=== PATIENT | male | born 2000 | race Two or more races ===

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

== ENCOUNTER 2019-02-05 22:46 | Emergency (ER) | payer SELFPAY ==
[~2019-02-05] VITALS: Ht 170.2 cm; Wt 90.9 kg
[2019-02-05 22:57] VITALS: Ht 170.2 cm; Wt 90.9 kg
[2019-02-05] MEDS ORDERED: HYDROCODON-ACE1 EAC7 (22:58)
[2019-02-05 23:46] VITALS: BP 144/88
== END 2019-02-05 23:48 | disposition home or self-care (01) ==
LOC: D.ER 22:46
DX: T18.0XXA Foreign body in mouth, initial encounter (principal); X58.XXXA Exposure to other specified factors, initial encounter; Y93.89 Activity, other specified; Y92.89 Other specified places as the place of occurrence of the external cause

== ENCOUNTER 2019-12-30 07:14 | Emergency (ER) | payer SELFPAY ==
[~2019-12-30] VITALS: Ht 170.2 cm; Wt 101.4 kg
[~2019-12-30 07:14] MED LIST: HYDROCODON-ACE1 EAC7
[2019-12-30 07:20] VITALS: Ht 170.2 cm; Wt 101.4 kg
[2019-12-30 07:44] LABS: BASOPHILS 0.3 % (0-2); HEMOGLOBIN 15.6 g/dL (13.5-17.5); IMMATURE GRANULOCYTES 1.2 % (0-5); LYMPHOCYTES 34.6 % (15-50); MCH 30.7 pg (26.0-34.0); MCHC 33.9 g/dL (31.0-37.0); MCV 90.6 fL (80.0-100.0); MEAN PLATELET VOLUME 10.5 fL (7.4-10.4); MONOCYTES 12.9 % (2-11); PLATELET COUNT 232 10x3/uL (130-400); RBC 5.08 10x6/uL (4.20-6.10); RDW 12.2 % (11.5-14.5); WBC 5.7 10x3/uL (4.8-10.8)
[2019-12-30 07:52] LABS: CALC OSMOLALITY 275 mosm/kg (275-300); CARBON DIOXIDE 28.6 mmol/L (21.0-32.0); CHLORIDE - SERUM 101 mmol/L (98-107); CREATININE - SERUM 0.8 mg/dL (0.6-1.3); GLUCOSE 135 mg/dL (74-106); POTASSIUM - SERUM 4.2 mmol/L (3.5-5.1); SODIUM 137 mmol/L (136-145); UREA NITROGEN 12 mg/dL (7-18); eGFR NON AFRICAN AMERICAN > 90 mL/min (90-120)
[2019-12-30 08:07] LABS: ALBUMIN 3.8 g/dL (3.4-5.0); ALKALINE PHOSPHATASE 54 U/L (30-120); ALT (SGPT) 88 U/L (10-68); BILIRUBIN - TOTAL 0.47 mg/dL (0.2-1.3); CKMB 0.1 U/L (0.0-3.6); CREATINE KINASE 56 UL (21-232); MAGNESIUM - SERUM 2.2 mg/dL (1.8-2.4); PROTEIN - SERUM 8.1 g/dL (6.4-8.2)
[2019-12-30 08:08] LABS: TROPONIN-I < 0.017 ng/mL (0.000-0.060)
[2019-12-30] MEDS ORDERED: ZOFRAN4 MG PO (08:58)
[2019-12-30 09:09] VITALS: BP 135/84
== END 2019-12-30 09:10 | disposition home or self-care (01) ==
LOC: D.ER 07:14
PROVIDERS: Family Medicine
DX: R11.10 Vomiting, unspecified (principal); R00.2 Palpitations; R07.9 Chest pain, unspecified; R06.02 Shortness of breath

== ENCOUNTER 2020-12-31 19:15 | Emergency (ER) | payer SELFPAY ==
[~2020-12-31] VITALS: Ht 170.2 cm; Wt 97.7 kg
[~2020-12-31 19:15] MED LIST changes: +ZOFRAN4 MG PO
[2020-12-31 19:17] VITALS: Ht 170.2 cm; Wt 97.7 kg
[2020-12-31 20:13] LABS: BASOPHILS 0.3 % (0-2); EOSINOPHILS 2.8 % (0-7); HEMATOCRIT 45.4 % (42.0-54.0); HEMOGLOBIN 15.3 g/dL (13.5-17.5); LYMPHOCYTES 27.2 % (15-50); MCH 30.1 pg (26.0-34.0); MCHC 33.7 g/dL (31.0-37.0); MCV 89.4 fL (80.0-100.0); MEAN PLATELET VOLUME 8.6 fL (7.4-10.4); MONOCYTES 8.9 % (2-11); NEUTROPHILS 60.8 % (40-80); PLATELET COUNT 247 10x3/uL (130-400); RBC 5.08 10x6/uL (4.20-6.10); RDW 12.9 % (11.5-14.5); WBC 8.3 10x3/uL (4.8-10.8)
[2020-12-31 20:22] LABS: INR 1.08 (0.85-1.17); PROTIME 12.9 SECONDS (11.6-15.0)
[2020-12-31 20:23] LABS: CALC OSMOLALITY 282 mosm/kg (275-300); CARBON DIOXIDE 26.7 mmol/L (21.0-32.0); CHLORIDE - SERUM 105 mmol/L (98-107); CREATININE - SERUM 0.8 mg/dL (0.6-1.3); GLUCOSE 106 mg/dL (74-106); POTASSIUM - SERUM 3.9 mmol/L (3.5-5.1); SODIUM 141 mmol/L (136-145); UREA NITROGEN 18 mg/dL (7-18); eGFR NON AFRICAN AMERICAN > 90 mL/min (90-120)
[2020-12-31 20:30] LABS: ALBUMIN 4.2 g/dL (3.4-5.0); ALKALINE PHOSPHATASE 49 U/L (30-120); ALT (SGPT) 83 U/L (10-68); BILIRUBIN - TOTAL 0.58 mg/dL (0.2-1.3); PROTEIN - SERUM 7.5 g/dL (6.4-8.2)
[2020-12-31] MEDS ORDERED: DICLOFENAC SODI50 MG PO (20:33)
[2020-12-31] MEDS ORDERED: METHOCARBAMOL500 MG PO (20:33)
[2020-12-31] MEDS ORDERED: CEPHALEXIN500 M1 PO (20:33)
[2020-12-31 21:20] VITALS: BP 133/82
[2020-12-31 21:30] LABS: BILIRUBIN NEGATIVE (NEGATIVE); KETONE NEGATIVE (NEGATIVE); NITRITE NEGATIVE (NEGATIVE); UROBILINOGEN NORMAL mg/dL (< 2)
== END 2020-12-31 22:02 | disposition home or self-care (01) ==
LOC: D.ER 19:15
PROVIDERS: Family Medicine
DX: S09.90XA Unspecified injury of head, initial encounter (principal); S39.012A Strain of muscle, fascia and tendon of lower back, initial encounter; S16.1XXA Strain of muscle, fascia and tendon at neck level, initial encounter; T22.112A Burn of first degree of left forearm, initial encounter; T22.111A Burn of first degree of right forearm, initial encounter; W40.8XXA Explosion of other specified explosive materials, initial encounter; Y93.9 Activity, unspecified; Y92.9 Unspecified place or not applicable